=== PATIENT | female | born 1985 | race African-American/Black ===

== ENCOUNTER 2021-04-14 23:07 | Emergency (ER) | payer MEDICAID ==
[~2021-04-14] VITALS: Ht 172.7 cm; Wt 117.0 kg
[2021-04-14 23:19] VITALS: BP 206/106
[2021-04-15] MEDS ORDERED: DIPHENHYDRAMINE 25MG CAPSULE PO ONE (01:15)
[2021-04-15] MEDS ORDERED: PREDNISONE 20MG TABLET PO ONE (01:15)
[2021-04-15] MEDS ORDERED: FAMOTIDINE 20MG TABLET PO ONE (01:15)
[2021-04-15] MEDS ORDERED: DIPH25CA83 MT (01:20)
[2021-04-15] MEDS ORDERED: P20 MT (01:20)
== END 2021-04-15 03:00 | disposition home or self-care (01) ==
LOC: ER 23:07
DX: T78.40XA Allergy, unspecified, initial encounter (principal); X58.XXXA Exposure to other specified factors, initial encounter; I10 Essential (primary) hypertension
CPT/HCPCS: 81025; 99284; J7512; Q0163